=== PATIENT | female | born 1995 | race Two or more races ===

== ENCOUNTER → 2024-08-31 | Emergency (ER) | payer OTHER ==
[~2024-08-31] VITALS: Ht 160 cm; Wt 54.4 kg
[~2024-08-31] MED LIST: 0.9 % SODIUM CHLORIDE 1,000 ML IV STA
== END | disposition left against medical advice (07) ==
LOC: ER 22:27
DX: O26.892 Other specified pregnancy related conditions, second trimester (principal); Z3A.19 19 weeks gestation of pregnancy; R10.2 Pelvic and perineal pain; W18.39XA Other fall on same level, initial encounter; Y93.89 Activity, other specified; Y92.89 Other specified places as the place of occurrence of the external cause

== ENCOUNTER 2024-09-04 15:12 | Emergency (ER) | payer OTHER ==
[~2024-09-04] VITALS: Ht 157.5 cm; Wt 55.8 kg
== END 2024-09-04 18:41 | disposition home or self-care (01) ==
LOC: ER 15:12
DX: O26.892 Other specified pregnancy related conditions, second trimester (principal); W01.0XXA Fall on same level from slipping, tripping and stumbling without subsequent striking against object, initial encounter; Y93.89 Activity, other specified; Y92.63 Factory as the place of occurrence of the external cause; R10.2 Pelvic and perineal pain

== ENCOUNTER 2024-12-02 06:57 | Emergency (ER) | payer OTHER ==
[~2024-12-02] VITALS: Ht 157.5 cm; Wt 63.5 kg
[2024-12-02] MEDS ORDERED: PNV-DHA SOFTGE1 EACH PO (07:11)
[2024-12-02] MEDS ORDERED: METOCLOPRAMIDE HCL 5 MG/ML VIAL IM STA (08:27)
[2024-12-02] MEDS ORDERED: 0.9 % SODIUM CHLORIDE 1,000 ML IV STA (08:28)
[2024-12-02] MEDS ORDERED: FAMOtidine 10 MG/ML (4ML VIAL) IV PUSH STA (08:29)
[2024-12-02] MEDS ORDERED: METOCLOPRAMIDE HCL 5 MG/ML VIAL ONE (08:38)
[2024-12-02 09:12] LABS: HEMATOCRIT 33.7 % (36.0-45.00); HEMOGLOBIN 10.6 g/dL (12.0-15.00); MEAN CELL VOLUME 72.2 fL (80.00-100.00); MEAN CORPUSCULAR HEMOGLOBIN 22.8 pg (27.00-32.0); MEAN CORPUSCULAR HGB CONC 31.6 g/dl (32.0-36.0); PLATELET COUNT 289 K/uL (150-450); RED BLOOD COUNT 4.67 M/uL (4.00-6.00); RED CELL DISTRIBUTION WIDTH 15.5 % (11.5-14.5)
[2024-12-02 09:39] LABS: PH,URINE 5.5 (5.0-8.0); URINE APPEARANCE Clear; URINE BILIRRUBIN Negative (NEGATIVE); URINE BLOOD Negative; URINE COLOR Dark Yellow; URINE GLUCOSE Negative (NEGATIVE); URINE KETONE Negative (NEGATIVE); URINE LEUKOCYTE Negative; URINE NITRATE Negative; URINE PROTEIN Trace (NEGATIVE); URINE UROBILINOGEN 0.2 E.U./dl
[2024-12-02 09:45] LABS: URINE BACTERIA 1462.5 uL (0.0-1933); URINE EPITHELIAL CELLS 41.4 uL (0.0-38.8); URINE RBC 7.5 uL (0.0-20.8); URINE WBC 34.1 uL (0.0-23.2)
[2024-12-02 09:52] LABS: URINE CAST 0.88 uL (0.0-1.40); URINE MUCUS MODERATE
[2024-12-02 10:07] LABS: CALCIUM 9.2 mg/dL (8.5-10.1); CREATININE SERUM 0.62 mg/dL (0.55-1.02); GFR 115.46; POTASSIUM 3.62 mEq/L (3.5-5.1)
[2024-12-02] MEDS ORDERED: CEFAZOLIN SODIUM 1,000 MG VIAL IM STA (11:05)
[2024-12-02] MEDS ORDERED: CEFAZOLIN SODIUM 1,000 MG VIAL ONE (11:12)
[2024-12-02] MEDS ORDERED: LIDOCAINE HCL 1% 10ML VIAL ONE (11:13)
== END 2024-12-02 11:20 | disposition home or self-care (01) ==
LOC: ER 07:00
DX: K52.9 Noninfective gastroenteritis and colitis, unspecified (principal); R11.10 Vomiting, unspecified; Z3A.33 33 weeks gestation of pregnancy

== ENCOUNTER 2025-01-12 12:27 | Inpatient (IN) | payer OTHER ==
[~2025-01-12] VITALS: Ht 157.5 cm; Wt 68.9 kg
[~2025-01-12 12:27] MED LIST changes: -0.9 % SODIUM CHLORIDE 1,000 ML IV STA; +PNV-DHA SOFTGE1 EACH PO
[2025-01-24 21:29] VITALS: BP 125/73
[2025-01-24] MEDS ORDERED: RINGERS SOLUTION,LACTATED 1,000 ML IV SCH (22:00)
[2025-01-24] MEDS ORDERED: MORPHINE SULFATE 4 MG/ML CARTRIDGE IV PRN (22:00)
[2025-01-24 23:08] LABS: BASO % 0.2 % (0.1-1.2); EOS # 0.15 (0.04-0.54); EOS % 0.8 % (0.7-7.0); HEMATOCRIT 31.1 % (34.1-44.9); HEMOGLOBIN 10.1 g/dL (11.2-15.7); LYMPH # 1.46 (1.18-3.74); LYMPH % 7.5 % (19.3-53.1); MEAN CORPUSCULAR HEMOGLOBIN 22.8 pg (25.6-32.2); MONO # 1.66 (0.24-0.82); MONO % 8.5 % (4.7-12.5); NEUT # 15.93 (1.56-6.13); NEUT % 81.9 % (34.0-71.1); PH,URINE 6.5 (5.0-8.0); PLATELET COUNT 262 K/uL (163-369); RED BLOOD COUNT 4.43 M/uL (3.93-5.22); RED CELL DISTRIBUTION WIDTH 14.5 % (11.6-14.4); URINE APPEARANCE Clear; URINE BILIRRUBIN Negative (NEGATIVE); URINE BLOOD NHT; URINE COLOR Yellow; URINE GLUCOSE Negative (NEGATIVE); URINE KETONE Negative (NEGATIVE); URINE LEUKOCYTE Trace; URINE NITRATE Negative; URINE PROTEIN Trace (NEGATIVE); URINE UROBILINOGEN 0.2 E.U./dl
[2025-01-24 23:11] LABS: URINE BACTERIA 36.6 uL (0.0-1933); URINE EPITHELIAL CELLS 6.9 uL (0.0-38.8); URINE RBC 23.8 uL (0.0-20.8); URINE WBC 25.9 uL (0.0-23.2)
[2025-01-24 23:13] LABS: URINE CAST 0.14 uL (0.0-1.40)
[2025-01-24 23:29] VITALS: BP 127/82
[2025-01-24 23:32] LABS: BILIRUBIN TOTAL 0.23 mg/dL (0.3-1.2); CALCIUM 9.2 mg/dL (8.5-10.1); CREATININE SERUM 0.6 mg/dL (0.55-1.02); GFR 119.92; GLOBULINA 3.8 G/DL (2.4-3.5); POTASSIUM 4.09 mEq/L (3.5-5.1); TOTAL PROTEIN 6.8 gm/dL (6.4-8.2)
[2025-01-25] VITALS (7 sets, daily range): BP systolic 99–128; BP diastolic 60–72; O2SAT 98–100
[2025-01-25 01:00] LABS: INR < 0.93; PROTHROMBIN TIME 9.8 SECONDS (9.0-11.5)
[2025-01-25 01:02] LABS: PARTIAL THROMBOPLASTIN TIME 26.5 SECONDS (22.0-34.0)
[2025-01-25] MEDS ORDERED: LIDOCAINE HCL 1% 10ML VIAL IJ ONE (12:00)
[2025-01-25] MEDS ORDERED: ERYTHROMYCIN BASE OPHT 1GM EACH TUBE OP ONE (12:00)
[2025-01-25] MEDS ORDERED: CHLORHEXIDINE GLUCONATE 120 ML BOTTLE TOP ONE (12:00)
[2025-01-25] MEDS ORDERED: IBUprofen 800 MG TABLET PO PRN (12:00)
[2025-01-25] MEDS ORDERED: ACETAMINOPHEN 500 MG GEL..CAP PO PRN (12:00)
[2025-01-25] MEDS ORDERED: OXYTOCIN 1,000 ML IV SCH (12:15)
[2025-01-25] MEDS ORDERED: HYDROCORTISONE 2.5% 30 GM TUBE RECTAL SCH (13:00)
[2025-01-25] MEDS ORDERED: BENZOCAINE/MENTHOL 90 ML BOTTLE TOP SCH (13:00)
[2025-01-26 00:52] VITALS: BP 127/83
[2025-01-26 02:12] LABS: RED BLOOD COUNT 3.91 M/uL (3.93-5.22)
[2025-01-26 02:13] LABS: BASO % 0.2 % (0.1-1.2); EOS % 0.2 % (0.7-7.0); HEMATOCRIT 27.3 % (34.1-44.9); LYMPH % 7.7 % (19.3-53.1); MONO % 9.7 % (4.7-12.5); NEUT # 21.02 (1.56-6.13); NEUT % 81.3 % (34.0-71.1); PLATELET COUNT 245 K/uL (163-369); RED CELL DISTRIBUTION WIDTH 14.8 % (11.6-14.4)
[2025-01-26 02:14] LABS: EOS # 0.04 (0.04-0.54); LYMPH # 1.98 (1.18-3.74); MONO # 2.52 (0.24-0.82)
[2025-01-26 08:00] VITALS: BP 120/73
[2025-01-26 15:51] VITALS: BP 131/78
[2025-01-27 00:29] VITALS: BP 118/70
[2025-01-27 09:09] VITALS: BP 114/74; O2SAT 99
== END 2025-01-27 14:02 | disposition home or self-care (01) | DRG 807 ==
LOC: OB/GYN 01-20 13:00 → LDR 01-24 21:57 → OB/GYN 01-25 10:52
PROVIDERS: Obstetrics & Gynecology; ADMIT Specialist; ATTEND Specialist
PROC: 4A1HXCZ Monitoring of Products of Conception, Cardiac Rate, External Approach (ICD-10-PCS; 2025-01-24)
PROC: 10E0XZZ Delivery of Products of Conception, External Approach (ICD-10-PCS; principal; 2025-01-25)
PROC: 0HQ9XZZ Repair Perineum Skin, External Approach (ICD-10-PCS; 2025-01-25)
PROC: 0W8NXZZ Division of Female Perineum, External Approach (ICD-10-PCS; 2025-01-25)
DX: O70.0 First degree perineal laceration during delivery (principal); Z37.0 Single live birth; O69.81X0 Labor and delivery complicated by cord around neck, without compression, not applicable or unspecified; Z3A.40 40 weeks gestation of pregnancy